=== PATIENT | male | born 1975 | race Caucasian/White ===

== ENCOUNTER 2021-08-19 09:27 | Emergency (ER) | payer BC ==
[~2021-08-19] VITALS: Ht 170.2 cm; Wt 83.9 kg
== END 2021-08-19 11:10 | disposition home or self-care (01) ==
LOC: ER 09:27
DX: K40.90 Unilateral inguinal hernia, without obstruction or gangrene, not specified as recurrent (principal)
CPT/HCPCS: 76870; 99284-25

== ENCOUNTER 2022-12-14 05:56 | Day surgery (SDC) | payer BC ==
[~2022-12-14] VITALS: Ht 170.2 cm; Wt 86.8 kg
[2022-12-14] VITALS (11 sets, daily range): BP systolic 103–136; BP diastolic 62–85
--- NOTE | 2022-12-14 11:17 | NUR ---
REPORT RECEIVED FROM CHER MEADE. VSS. PT ABLE TO REPOSITION SELF IN BED. PT REQUESTS PO FLUIDS AND FOOD AND TOLERATING THEM WELL. PT REPORTS 7/10 THROBBING PAIN TO GROIN AREA. PT DENIES NAUSEA AT THIS TIME. PT HAS 3 DERMABOND DRESSING SITES ON ABDOMEN IN PLACE THAT ARE C/D/I WITHOUT DRAINAGE, REDNESS, OR SWELLING.
--- NOTE | 2022-12-14 11:51 | NUR ---
Patient up to Ambulate independently. Gait steady. Discharge instructions reviewed with patient. Patient verbalizes understanding. Copy given to patient to take home. Dressing to procedure site clean, dry, intact with no visible drainage, swelling, erythema or bruising noted. Patient States Post-Procedure ride home has been arranged. Discharged via wheelchair to private car for ride home. PT BELONGINGS RETURNED TO PT.
== END 2022-12-14 22:40 | disposition home or self-care (01) ==
LOC: ORSCMMR 05:56 → ORD 07:30 → ORSCMMR 07:30
PROVIDERS: Surgery
PROC: 8E0W4CZ Robotic Assisted Procedure of Trunk Region, Percutaneous Endoscopic Approach (ICD-10-PCS; principal; 2022-12-14 07:30)
PROC: 0YU54JZ Supplement Right Inguinal Region with Synthetic Substitute, Percutaneous Endoscopic Approach (ICD-10-PCS; principal; 2022-12-14 07:30)
DX: K40.30 Unilateral inguinal hernia, with obstruction, without gangrene, not specified as recurrent (principal); E78.5 Hyperlipidemia, unspecified; G47.33 Obstructive sleep apnea (adult) (pediatric); G47.10 Hypersomnia, unspecified
CPT/HCPCS: 49650; S2900; A9270; C1781; J0690; J1100; J1170; J1885; J2250; J2370; J2405; J2704; J2795; J3010; J7120